=== PATIENT | female | born 1960 | race Caucasian/White ===

== ENCOUNTER → 2017-12-30 | Day surgery (SDC) | payer OTHER ==
[2017-12-28 09:15] LABS: BASOPHILS % 0.4 % (0.0-1.0); EOSINOPHILS # (AUTO) 0.2 (0.0-0.4); EOSINOPHILS % 2.3 % (0.0-6.0); HEMATOCRIT 42.1 % (34.2-44.1); HEMOGLOBIN 13.7 g/dL (12.0-16.0); LYMPHOCYTES # (AUTO) 3.2 (1.0-3.2); LYMPHOCYTES % 30.8 % (18.0-39.1); MEAN CORPUSCULAR HEMOGLOBIN 27.8 pg (28-32); MEAN CORPUSCULAR HGB CONC 32.5 g/dL (31-35); MEAN CORPUSCULAR VOLUME 85.4 fL (81-99); MONOCYTES # (AUTO) 0.7 (0.2-0.8); MONOCYTES % 6.5 % (4.4-11.3); NEUTROPHILS # (AUTO) 6.2 (2.1-6.9); NEUTROPHILS % 59.7 % (38.7-80.0); PLATELET COUNT 268 x10e3/uL (140-360); RED BLOOD COUNT 4.93 x10e6/uL (3.6-5.1); RED CELL DISTRIBUTION WIDTH 13.4 % (11.7-14.4)
[2017-12-28 09:33] LABS: INR 1.03; PROTHROMBIN TIME 12.7 seconds (11.9-14.5)
[2017-12-28 09:34] LABS: PARTIAL THROMBOPLASTIN TIME 28.3 seconds (23.8-35.5)
[~2017-12-30] MED LIST: FENTANYL CITRATE/PF 100MCG/2 ML INJ ONE; HYOSCYAMINE SULFATE 0.5 MG/ML AMP ONE; LIDOCAINE HCL 2% LOCAL INJ 5 ML SDV VIAL INJ ONE; MIDAZOLAM HCL 2 MG/2 ML VIAL ONE; PROPOFOL IV EMULSION 10 MG/ML 50 ML VIAL ONE
--- OUTSIDE RECORDS SUMMARY | 2017-12-30 08:17 | XMS REPORT ---
Author Author [facility] Address Unknown Phone Unavailable Care Team Providers Care Community Advocate Name Role Phone LEE LANGLEY PP Unavailable [facility], OCCUPATIONAL Unavailable Unavailable Problems This patient has no known problems. Allergies, Adverse Reactions, Alerts This patient has no known allergies or adverse reactions. Medications This patient has no known medications. Encounters Start Date/Time End Date/Time Encounter Type Admission Type Attending Clinicians Care Facility Care Department Encounter ID 2017-09-10 06:50:00 2017-09-10 06:50:00 Outpatient C [facility] MED [id number] Results Test Description Test Time Test Comments Text Results Atomic Results Result Comments [facility]ST[facility] MAMMO SCREENING KACY W/CAD 2017-09-10 16:13:22 [facility] MAMMO SCREENING KACY W/CADZ12.31: ENCNTR SCREEN MAMMOGRAM FOR MALIGNANT NEOPLASM OF BREAST.Dictation Location: [id number] Information: Screening mammogram. Patient reports high riskexcisional biopsy in the left breast in 2007 Technique: Bilateral digital mammogram with computer assisted diagnosis. Bilateral CC and MLO views were obtained.Comparison: Prior mammograms dating back to 09/07/2014Findings: There are scattered areas of fibroglandular density. There is bilateralnodularity. A scar marker is placed on the upper outer left breast,overlying stable postsurgical changes. There are no suspicious masses ormicrocalcifications.IMPRESSION: Bilateral nodularity, for which bilateral breast ultrasound isrecommended for further evaluation.The patient will be contacted regarding need for additional imaging.ACR BI-RADS 0: INCOMPLETE. NEED ADDITIONAL IMAGING EVALUATION.RECOMMENDATION: BILATERAL BREAST ULTRASOUND. Mumps Antibodies, IgG 2017-08-27 08:53:00 Mumps Abs, IgG (test mtqc=[id number]) 291.0 AU/mL Immune >10.9 Negative <9.0 Equivocal 9.0 - 10.9 Positive >10.9A positive result generally indicates past exposure toMumps virus or previous vaccination. Varicella-Zoster V Ab, [id number] 08:53:00* Test Item Value Reference Range Comments Varicella Zoster IgG (test vfit=[id number]) 1814 index Immune >165 Negative <135 Equivocal 135 - 165 Positive >165A positive result generally indicates exposure to thepathogen or administration of specific immunoglobulins,but it is not indication of active infection or stageof disease. Rubeola Antibodies, [id number] 08:53:00* Test Item Value Reference Range Comments Rubeola Ab, IgG (test lcyi=[id number]) >300.0 AU/mL Immune >29.9 Negative <25.0 Equivocal 25.0 - 29.9 Positive > 29.9Presence of antibodies to Rubeola is presumptive evidenceof immunity except when acute infection is suspected. Rubella [id number] 22:33:00* Test Item Value Reference Range Comments Rubella IgG (test code=RUBELIGG) Immune Immune Hep B Surface [id number] 22:25:00* Test Item Value Reference Range Comments Hep Bs Ab (test code=HBSAB) Nonreactive Non-Reactive
--- NOTE | 2017-12-30 10:45 | Operative Report ---
DATE OF PROCEDURE: December 30, 2017 REFERRING PHYSICIAN: Dr. Vickey Ramos PROCEDURE PERFORMED: Colonoscopy and polypectomy. INDICATIONS FOR COLONOSCOPY: Colorectal cancer screening and personal history of colon polyps. MEDICATION: Patient was done under MAC. Please see anesthesiologist's note. PROCEDURE: With the patient in the left lateral decubitus position, the flexible fiberoptic Olympus colonoscope was inserted into the rectum with ease and advanced all the way to the cecum. One polyp was snared from the cecum. One polyp was hot biopsied from the ascending colon. One polyp was snared from the transverse colon. The descending colon appeared to be within normal limits. One polyp was hot biopsied from the sigmoid. The rectum grossly appeared to be within normal limits. The scope was then retroflexed into the distal rectum and moderate size internal hemorrhoids were noted, none of which was actively bleeding. The scope was then straightened. It was subsequently withdrawn. Patient tolerated the procedure well. IMPRESSION 1. Cecal polyp, snared. 2. Ascending colon polyp, hot biopsied. 3. Transverse colon polyps, snared. 4. Sigmoid colon polyp, hot biopsied. 5. Internal hemorrhoids, none actively bleeding. PLAN: Follow up histology. Initiate high-fiber and low-fat diet. Initiate high-fiber supplement. Patient will need a followup colonoscopy in 3 years. Job#: [id number] RI cc:PILAR RAMOS DO
== END | disposition home or self-care (01) ==
LOC: ENDO 08:14
PROVIDERS: ATTEND Internal Medicine Gastroenterology
DX: Z12.11 Encounter for screening for malignant neoplasm of colon (principal); D12.3 Benign neoplasm of transverse colon; K64.8 Other hemorrhoids; I49.9 Cardiac arrhythmia, unspecified; F41.9 Anxiety disorder, unspecified; Z01.810 Encounter for preprocedural cardiovascular examination; Z01.812 Encounter for preprocedural laboratory examination; Z68.43 Body mass index [BMI] 50.0-59.9, adult; Z87.01 Personal history of pneumonia (recurrent)
CPT/HCPCS: 36415; 45384; 45385; 85025; 85610; 85730; 93005; J1980; J2001; J2250; 45378

== ENCOUNTER → 2018-09-09 | Outpatient (CLI) | payer OTHER | LOC: MAMMO 11:38 | PROVIDERS: ATTEND Family Medicine | DX: Z12.31 Encounter for screening mammogram for malignant neoplasm of breast (principal) | CPT/HCPCS: 77067 ==

== ENCOUNTER → 2020-04-26 | Outpatient (CLI) | payer OTHER | LOC: MAMMO 08:18 | PROVIDERS: ATTEND Family Medicine | DX: Z12.31 Encounter for screening mammogram for malignant neoplasm of breast (principal) | CPT/HCPCS: 77067 ==

== ENCOUNTER → 2021-05-01 | Outpatient (CLI) | payer OTHER | LOC: MAMMO 08:47 | PROVIDERS: ATTEND Family Medicine | DX: Z12.31 Encounter for screening mammogram for malignant neoplasm of breast (principal) | CPT/HCPCS: 77067 ==

== ENCOUNTER → 2022-05-05 | Outpatient (CLI) | payer OTHER | LOC: MAMMO 08:54 | PROVIDERS: ATTEND Family Medicine | DX: Z12.31 Encounter for screening mammogram for malignant neoplasm of breast (principal) | CPT/HCPCS: 77067 ==

== ENCOUNTER → 2023-05-07 | Outpatient (REF) | payer OTHER | LOC: MAMMO 08:22 | PROVIDERS: ATTEND Family Medicine | DX: Z12.31 Encounter for screening mammogram for malignant neoplasm of breast (principal) | CPT/HCPCS: 77067 ==

== ENCOUNTER → 2024-05-10 | Outpatient (REF) | payer MEDICARE | LOC: MAMMO 08:19 | PROVIDERS: ATTEND Family Medicine | DX: Z12.31 Encounter for screening mammogram for malignant neoplasm of breast (principal) | CPT/HCPCS: 77067 ==

== ENCOUNTER → 2025-05-11 | Outpatient (REF) | payer MEDICARE | LOC: MAMMO 08:26 | PROVIDERS: ATTEND Family Medicine | DX: Z12.31 Encounter for screening mammogram for malignant neoplasm of breast (principal) | CPT/HCPCS: 77067 ==